=== PATIENT | male | born 1985 | race Caucasian/White ===

== ENCOUNTER → 2019-06-26 19:00 | Outpatient (CLI) | payer OTHER ==
[2019-06-27 11:34] LABS: BASOPHILS 0.5 % (0-2); EOSINOPHILS 1.7 % (0-7); HEMATOCRIT 46.6 % (42.0-54.0); HEMOGLOBIN 15.5 g/dL (13.5-17.5); IMMATURE GRANULOCYTES 0.2 % (0-5); LYMPHOCYTES 38.2 % (15-50); MCHC 33.3 g/dL (31.0-37.0); MCV 90.1 fL (80.0-100.0); MEAN PLATELET VOLUME 9.9 fL (7.4-10.4); MONOCYTES 7.2 % (2-11); NEUTROPHILS 52.2 % (40-80); PLATELET COUNT 319 10x3/uL (130-400); RBC 5.17 10x6/uL (4.20-6.10); RDW 12.1 % (11.5-14.5); WBC 9.3 10x3/uL (4.8-10.8)
== END | disposition home or self-care (01) ==
LOC: D.LABREF 19:00
PROVIDERS: ATTEND Internal Medicine Gastroenterology
DX: R53.83 Other fatigue (principal); R19.7 Diarrhea, unspecified; K92.1 Melena; R63.4 Abnormal weight loss